=== PATIENT | female | born 1995 | race Caucasian/White ===

== ENCOUNTER 2017-09-07 16:58 | Emergency (ER) | payer OTHER ==
--- NOTE | 2017-09-07 17:19 | ER Report ---
History and Physical Time Seen By MD: 17:04 Hx. of Stated Complaint: PT GOT [place] RING CAUGHT IN SHOWER AND FINGER BECAME RED AND SWOLLEN AND THE RING WILL NOT COME OFF NOW HPI/ROS CHIEF COMPLAINT: Finger swelling and Ring stuck on finger HISTORY OF PRESENT ILLNESS: This is a 22-year-old female who presents to the emergency department for left ring finger swelling and her reading is stuck on her finger. Patient states she slipped and the ring caught something and her finger started swelling and was unable to get her rings off. There is a small abrasion to the omaira of the left ring finger. The finger is red and swollen. Patient is tearful. No other complaints at this time. REVIEW OF SYSTEMS: Respiratory: No cough, no dyspnea. Cardiovascular: No chest pain, no palpitations. Gastrointestinal: No vomiting, no abdominal pain. Musculoskeletal: As above. Integumentary: As above. Allergies: Coded Allergies: No Known Drug Allergies (Unverified , 09/07/17) Home Meds Reported Medications Esomeprazole Magnesium (NEXIUM) 40 Mg Capsule.dr, 1 CAP PO QDAY, CAP 09/07/17 Past Medical/Surgical History The patient has no significant past medical or surgical history. Reviewed Nurses Notes: Yes Constitutional Vital Sign - Last 24 Hours 09/07/17 09/07/17 17:04 17:30 Temp 97.6 Pulse 100 78 Resp 16 B/P (MAP) 126/72 116/62 (80) Pulse Ox 100 O2 Delivery Room Air Physical Exam General Appearance: The patient is alert, has no immediate need for airway protection and no current signs of toxicity. Eyes: Pupils equal and round no injection. Respiratory: Chest is non tender, lungs are clear to auscultation. Cardiac: regular rate and rhythm. Gastrointestinal: Abdomen is soft and non tender, no masses, bowel sounds normal. Musculoskeletal: Neck: Neck is supple and non tender. Extremities have full range of motion, left ring finger is swollen, tender and red, CMS intact. Skin: Small abrasion to the base of the left ringer finger, palmar side. DIFFERENTIAL DIAGNOSIS: After history and physical exam differential diagnosis was considered for constrictive jewelry of the finger. Medical Decision Making ED Course/Re-evaluation ED Course The patient was admitted to room. A history and physical were obtained. After examining the patient and speaking with her I did cut the 2 rings off on the left ring finger. I was able to remove the rings without incident. The patient had significant relief, the redness to the left ring finger resolves. Patient did have a small abrasion to the palmar side of the base of the left ring finger. The area was cleaned, bacitracin applied and a bandage applied. Patient was instructed to monitor for signs of infection return to the emergency department for any other concerns worsening symptoms. Patient was roomed splenic her discharged home. Decision to Disposition Date: Sep 07, 2017 Decision to Disposition Time: 17:20 Depart Departure Latest Vital Signs Vital Signs Date Time Temp Pulse Resp B/P (MAP) Pulse Ox O2 Delivery O2 Flow Rate FiO2 09/07/17 17:30 78 116/62 (80) 09/07/17 17:04 97.6 16 100 Room Air Impression: Primary Impression: Constrictive jewelry of finger Condition: Improved Disposition: HOME OR SELF-CARE Patient Instructions: Acute Wound Care (ED) Additional Instructions: Drink plenty of water. Get plenty of rest. Monitor the ring finger for infection. Keep the small abrasion clean and dry. Return to the emergency department for any other concerns or worsening symptoms. Problem Qualifiers Primary Impression: Constrictive jewelry of finger Encounter type: initial encounter Qualified Codes: S60.449A - External constriction of unspecified finger, initial encounter; W49.04XA - Ring or other jewelry causing external constriction, initial encounter GOKUL [id number]-BC Sep 07, 2017 17:19
[2017-09-07] MEDS ORDERED: ESOM40CA42 PO (17:25)
[2017-09-07 17:30] VITALS: BP 116/62
== END 2017-09-07 17:40 | disposition home or self-care (01) ==
LOC: ER 17:08
DX: S60.445A External constriction of left ring finger, initial encounter (principal); W49.04XA Ring or other jewelry causing external constriction, initial encounter
CPT/HCPCS: 99282